=== PATIENT | female | born 1990 | race African-American/Black ===

== ENCOUNTER 2021-09-08 13:26 | Emergency (ER) | payer MEDICAID, OTHER ==
[~2021-09-08] VITALS: Ht 167.6 cm; Wt 57.0 kg
[2021-09-08] MEDS ORDERED: IBUPROFEN 400MG TABLET PO ONE (14:15)
[2021-09-08] MEDS ORDERED: TETANUS, DIPHTHERIA, PERTUSSIS VAC/PF 0.5ML (>10YR OLD) IM ONE (14:15)
[2021-09-08] MEDS ORDERED: AMOX-424 MT (16:43)
[2021-09-08 16:50] VITALS: BP 127/67
== END 2021-09-08 16:51 | disposition home or self-care (01) ==
LOC: ER 13:26
DX: M25.521 Pain in right elbow (principal); M54.6 Pain in thoracic spine
CPT/HCPCS: 73080; 73130; 81025; 90471; 90715; 99284

== ENCOUNTER 2021-10-13 05:12 | Emergency (ER) | payer MEDICAID ==
[~2021-10-13] VITALS: Ht 165.1 cm; Wt 54.3 kg
[~2021-10-13 05:12] MED LIST: AMOX-424 MT
[2021-10-13 05:14] VITALS: BP 132/68
== END 2021-10-13 06:41 | disposition home or self-care (01) ==
LOC: ER 05:12
DX: T76.21XA Adult sexual abuse, suspected, initial encounter (principal); X58.XXXA Exposure to other specified factors, initial encounter
CPT/HCPCS: 99281